=== PATIENT | male | born 1965 | race Caucasian/White ===

== ENCOUNTER 2017-04-01 08:54 | Outpatient (CLI) | payer BC | END 2017-04-01 18:45 | disposition home or self-care (01) | LOC: SDS 08:54 → SUS 18:45 | PROVIDERS: ATTEND Internal Medicine | DX: R10.11 Right upper quadrant pain (principal) | CPT/HCPCS: 76700-TC ==

== ENCOUNTER 2017-04-04 09:00 | Outpatient (CLI) | payer BC ==
[2017-04-04 10:33] LABS: ALBUMIN 4.2 g/dL (3.4-4.8); CALCIUM 9.5 mg/dL (8.4-11.0); CREATININE 1.22 mg/dL (0.55-1.30); POTASSIUM 3.7 mmol/L (3.5-5.1); THYROID STIMULATING HORMONE 2.12 uIu/mL (0.34-4.82); TOTAL BILIRUBIN 0.8 mg/dL (0.0-1.0); TOTAL PROTEIN, SERUM 7.5 g/dL (6.4-8.3)
== END 2017-04-04 20:22 | disposition home or self-care (01) ==
LOC: SLB 09:00
PROVIDERS: ATTEND Internal Medicine
DX: E10.9 Type 1 diabetes mellitus without complications (principal)
CPT/HCPCS: 36415; 80053; 80061; 82306; 83036; 84443-TC